=== PATIENT | female | born 1995 | race Caucasian/White ===

== ENCOUNTER 2018-11-16 07:40 | Emergency (ER) | payer OTHER ==
[~2018-11-16] VITALS: Ht 152.4 cm; Wt 53.1 kg
[2018-11-16 07:43] VITALS: BP 122/52
--- NOTE | 2018-11-16 07:50 | NUR ---
BIB BOYFRIEND. AAO X4 C/O LLQ ABDOMINAL PAIN RADIATING TO L FLANK SINCE YESTERDAY, N/V. VOMITED X2 TODAY. PT DENIES DYSURIA, HEMATURIA, FEVER. PT DENIES OTC MEDS. ABDOMEN SOFT, NON-TENDER TO TOUCH. HOB UP. BED SIDE RAILS UP X1. ON LOW BED POSITION, LOCKED. ER TO EVALUATE PT.
--- NOTE | 2018-11-16 07:50 | NUR ---
Patient ambulated to bed 11. RN evaluating patient at bedside.
[2018-11-16 08:11] LABS: BASOPHILS % (AUTO) 0.4 % (0.0-2.0); EOSINOPHILS # (AUTO) 0.3 K/uL (0-0.4); HEMATOCRIT 37.7 % (36-48); HEMOGLOBIN 12.6 g/dL (12.0-16.0); LYMPHOCYTES # (AUTO) 2.5 K/uL (2.5-16.5); LYMPHOCYTES % (AUTO) 33.9 % (20.5-51.1); MEAN CORPUSCULAR HEMOGLOBIN 30 pg (27-31); MEAN CORPUSCULAR HGB CONC 33 g/dL (33-37); MEAN CORPUSCULAR VOLUME 88.4 fL (80-94); MONOCYTES # (AUTO) 0.5 K/uL (0.8-1.0); MONOCYTES % (AUTO) 6.7 % (1.7-9.3); NEUTROPHILS # (AUTO) 4.1 K/uL (1.8-7.7); PLATELET COUNT (AUTO) 252 K/uL (140-450); RED BLOOD CELL COUNT(AUTO) 4.26 MIL/uL (4.20-5.40); RED CELL DISTRIBUTION WIDTH 13.9 % (11.6-13.7); WHITE BLOOD COUNT (AUTO) 7.4 K/uL (4.8-10.8)
[2018-11-16] MEDS ORDERED: KETOROLAC 15 MG/ML VIAL IVP ONE ×2 (08:15→09:45)
[2018-11-16] MEDS ORDERED: NACL 0.9% 1,000 ML IV ONE (08:15)
[2018-11-16] MEDS ORDERED: METOCLOPRAMIDE 10 MG/2 ML INJ VIAL IVP ONE (08:15)
[2018-11-16] MEDS ORDERED: KETOROLAC 15 MG/ML VIAL ONE (08:28)
--- NOTE | 2018-11-16 08:33 | NUR ---
PT TO CT VIA ROMAINE IN STABLE CONDITION
--- NOTE | 2018-11-16 08:39 | NUR ---
PT TAKEN TO ROOM FROM CT VIA JAMESROVIDIO BY CHAZ
[2018-11-16 08:44] LABS: APPEARANCE,URINE HAZY (CLEAR); BILIRUBIN,URINE NEGATIVE (NEGATIVE); BLOOD, URINE TRACE-I (NEGATIVE); COLOR,URINE YELLOW (YELLOW); LEUKOCYTE ESTERASE ,URINE NEGATIVE (NEGATIVE); NITRITE, URINE NEGATIVE (NEGATIVE); UGLUCOSE NEGATIVE (NEGATIVE)
[2018-11-16 08:52] LABS: RBC,URINE 0-5 /HPF (0-5); WBC,URINE 0-5 /HPF (0-5)
[2018-11-16 09:36] LABS: ANION GAP 15.2 (8-16); CARBON DIOXIDE 22.1 mmol/L (21-32); CREATININE 0.8 mg/dL (0.6-1.3); POTASSIUM 3.3 mmol/L (3.5-5.1)
[2018-11-16 09:37] LABS: TOTAL BILIRUBIN 0.6 mg/dL (0.0-1.0)
[2018-11-16 09:38] LABS: ALBUMIN 3.7 g/dL (3.4-5.0)
[2018-11-16] MEDS ORDERED: MORPHINE SULFATE 2 MG/ML SYR IVP ONE (09:45)
[2018-11-16] MEDS ORDERED: cefTRIAXone 1,000 MG VIAL ONE (09:49)
--- NOTE | 2018-11-16 09:59 | NUR ---
LAB AT BEDSIDE
[2018-11-16] MEDS ORDERED: ONDANSETRON 4 MG/2 ML VIAL IVP ONE (10:45)
[2018-11-16] MEDS ORDERED: KETOROLAC 30 MG/ML VIAL IVP ONE (10:45)
--- NOTE | 2018-11-16 12:00 | NUR ---
CALLED [facility] AT [phone] AND GAVE REPORT TO KALYN, CHARGE NURSE.
--- NOTE | 2018-11-16 12:05 | NUR ---
REPORT GIVEN TO [facility] FOR TRANSFER OF PT TO [facility]. PT AAO X4. FULL CLEAR SPEECH. NO SIGNS AND SYMPTOMS OF DISTRESS NOTED.
--- NOTE | 2018-11-16 12:07 | NUR ---
[facility] at bedside for transfer to [facility].
[2018-11-16 12:20] VITALS: BP 110/65
--- NOTE | 2018-11-16 12:20 | NUR ---
Patient to be transferred to [facility]. Is being transferred due to Kidneys stones, UTI, hydronephrosis. Receiving facility has accepting physician and available space. ER physician has signed transfer form. Patient or responsible green party has agreed to transfer and signed form. Patient belongings inventoried and will be sent with patient. Copy of nursing notes, lab reports, EKG, Physicians Orders and X-rays to be sent with patient. Report called to Sarah Sanchez RN at receiving facility. [facility] ambulance service has been called for transfer. ETA is 20 mins.
== END 2018-11-16 12:10 | disposition short-term general hospital (02) ==
LOC: MED 07:40
DX: N13.2 Hydronephrosis with renal and ureteral calculous obstruction (principal); N39.0 Urinary tract infection, site not specified; Z87.442 Personal history of urinary calculi
CPT/HCPCS: 36415; 74176; 80053; 81001; 81025; 83690; 85025; 87040; 96365; 96375; 96376; 99291; J0696; J1885; J2270; J2405; J2765; J7060; J7030

== ENCOUNTER 2019-03-26 23:52 | Emergency (ER) | payer OTHER ==
[~2019-03-26] VITALS: Ht 152.4 cm; Wt 53.1 kg
[2019-03-27 00:07] VITALS: BP 121/72
--- NOTE | 2019-03-27 00:12 | NUR ---
[facility] CUP PROVIDED FOR URINE SAMPLE
--- NOTE | 2019-03-27 00:58 | NUR ---
PT AMBULATED TO ER BED 07
--- NOTE | 2019-03-27 01:00 | NUR ---
23/F BIB SELF FOR C/O RASH. PT STATES SHE HAD RED SPOT TO L SIDE OF NECK THIS AM. PT STATES NOW THE RED SPOTS ARE ON CHEST, UPPER ABD, NECK AND BACK AREA. NO PAIN REPORTED. VSS .NO FEVER. DENIES N/V/D. NO SOB. NO ITCHING NOTED. WILL CONTINUE TO MONITOR. HX: DENIES RX: DENIES; OCCASIONAL MARIJUANA USE AX: DENIES
[2019-03-27 02:10] VITALS: BP 116/70
--- NOTE | 2019-03-27 02:10 | NUR ---
Patient discharged with v/s stable. Written and verbal after care instructions given and explained. Patient alert, oriented and verbalized understanding of instructions. Ambulatory with steady gait. All questions addressed prior to discharge. ID band removed. Patient advised to follow up with PMD. Rx of PREDNISONE, BENADRYL given. Patient educated on indication of medication including possible reaction and side effects. Opportunity to ask questions provided and answered.
== END 2019-03-27 02:10 | disposition home or self-care (01) ==
LOC: MED 23:52
DX: R21 Rash and other nonspecific skin eruption (principal); F12.90 Cannabis use, unspecified, uncomplicated; Z87.442 Personal history of urinary calculi
CPT/HCPCS: 81002; 81025; 99283